=== PATIENT | female | born 1965 | race Caucasian/White ===

== ENCOUNTER 2020-05-13 00:34 | Outpatient (CLI) | payer OTHER, SELFPAY ==
[2020-05-13 19:58] LABS: SARS-CoV-2 RNA PCR Negative
== END 2020-05-13 00:35 | disposition home or self-care (01) ==
LOC: ANHCOVIDDT 00:34
PROVIDERS: Visit Provider Obstetrics & Gynecology
DX: Z01.812 Encounter for preprocedural laboratory examination (principal); Z20.828 Contact with and (suspected) exposure to other viral communicable diseases
CPT/HCPCS: 87635; C9803; U0003

== ENCOUNTER 2020-05-13 09:36 | Outpatient (CLI) | payer OTHER, SELFPAY ==
--- NOTE | 2020-05-13 09:40 | ECG_ITS ---
Measurements Intervals [place]son Rate: 56 P: 78 NV: 142 QRS: 75 QRSD: 94 T: 69 QT: 374 QTc: 362 Interpretive Statements SINUS BRADYCARDIA POSSIBLE RIGHT ATRIAL ENLARGEMENT LEFT ATRIAL ENLARGEMENT INCOMPLETE RIGHT BUNDLE BRANCH BLOCK DELAYED PRECORDIAL R/S TRANSITION BASELINE ARTIFACT- I, II, III, AVR, AVL, AVF, V1-V6 BORDERLINE ECG Electronically Signed On 05-13-2020 10:00:58 [employer] by Alberto Woods D.O.
== END 2020-05-13 09:37 | disposition home or self-care (01) ==
LOC: ANHSURGERY 09:40
PROVIDERS: PCP Family Medicine; Visit Provider Obstetrics & Gynecology
DX: I10 Essential (primary) hypertension (principal); Z01.818 Encounter for other preprocedural examination; I45.10 Unspecified right bundle-branch block
CPT/HCPCS: 93005

== ENCOUNTER 2020-05-15 03:21 | Day surgery (SDC) | payer OTHER, SELFPAY ==
--- NOTE | 2020-05-14 14:10 | P.PNAN_ITS ---
Anes - Initial Pre Proc Eval Procedure: Operation Date: 05/15/20 10:00 Proposed Procedures p Hysteroscopy Dilation and Curettage - Jarek Tan MD Date/Time: 05/14/20 14:10 Surgeon: Jarek Tan MD Pre Op Diagnosis: Post Menopausal Bleeding Patient Data Age: 54 Gender: F Height: Weight: 51.5 kg Allergies Allergy/AdvReac Type Severity Reaction Status Date / Time tramadol Allergy Intermediate NAUSEA Verified 05/15/20 08:42 Home Medications Medication Instructions Recorded Confirmed Type lisinopril 2.5 mg PO HS 05/02/20 05/15/20 History Patient hx anesthesia problems: none Family hx anesthesia problems: none [facility] Past Medical History Medical History (Updated 05/14/20 @ 14:11 by Austyn Fields MD) Asthma HTN (hypertension) Social History Social History Smoking status: Never smoker Living arrangements: with family Anes - Eval Final PreProcedure Day of Procedure 05/14/20 14:10 Patient weight: overweight Heart: regular rate and rhythm Lungs: clear to auscultation and normal air movement Airway: Mallampati scale class II Neurological: alert and oriented Last oral intake: >/= 8 hours ASA classification: II Emergent: no Anesthetic plan: proceed Anesthesia type and monitoring: general GIVS and LMA Informed Consent: The patient's anesthetic plan and its attendant risks and benefits were discussed with the patient/family/POA. Questions were solicited and answers provided to the satisfaction of the patient/family/POA.
[2020-05-15 08:20] VITALS: BP 138/82; PULSE 66; RESP 14; TEMP 36.6; O2SAT 100
[2020-05-15] MEDS: ACETAMINOPHEN 500 MG TABLET 1000 MG PO (08:41)
[2020-05-15] MEDS: LACTATED RINGERS 1,000 ML 30 ML IV CONT (08:52)
[2020-05-15 09:13] LABS: Hematocrit 40.8 % (37.0-47.0); Hemoglobin 13.7 g/dL (12.0-15.0)
--- NOTE | 2020-05-15 09:26 | WPDHPUPDATE1 ---
History and Physical Update Update Date/Time: 05/15/20 09:26 History and Physical has been reviewed, including an updated exam of the patient. There are NO changes in the patient's condition. Risks, benefits, and alternatives have been discussed and questions answered. Patient agrees to proceed with procedure.
--- NOTE | 2020-05-15 10:45 | SUR.OPER ---
EBL:20cc
--- NOTE | 2020-05-15 10:51 | PM.PROC ---
Procedure Note - Detailed Date of procedure: 05/15/20 Pre-op diagnosis: Post Menopausal Bleeding Abnormal uterine bleeding Post-op diagnosis: same Procedure performed: Hysteroscopy D&C Description of procedure: The patient was taken the operating room. She was prepped and draped in the dorsal lithotomy position after induction of mac anesthesia. A speculum was placed in the vagina. The cervix grasped with a tenaculum. The cervix was injected at 3 and 9:00 a.m. with 1% lidocaine. Cervix was dilated up to 1 cm. The hysteroscope was inserted the intrauterine cavity and the above findings were noted. A medium-size curette was then used to curettage all surfaces within the endometrial cavity. The endometrial curettings were collected on a Telfa. There were submitted to the pathology department. Hysteroscope was reinserted the intrauterine cavity to re-examine the endometrial surfaces. The hysteroscope was withdrawn. The tenaculum was removed. The speculum was removed. The patient tolerated the procedure well. She was taken recovery room stable condition. Sponge lap needle counts were correct x2. Anesthesia: MAC Surgeon: Jarek Tan MD Estimated blood loss (mL): 75 Drains: No Packing: No Pathology: yes Complications: No immediate complications Condition: stable Disposition: PACU Findings: There was some thickening of the endometrium. There was normal appearing vulva vagina and cervix.
[2020-05-15 10:54] VITALS: BP 97/64; PULSE 66; RESP 12; O2SAT 97
[2020-05-15 11:15] VITALS: BP 99/57; PULSE 60; RESP 16; O2SAT 100
[2020-05-15 11:45] VITALS: BP 123/74; PULSE 54; RESP 16; TEMP 36.6
== END 2020-05-15 12:10 | disposition home or self-care (01) ==
PROVIDERS: Anesthesiology; PCP Family Medicine; Visit Provider Obstetrics & Gynecology
PROC: 0U5B8ZZ Destruction of Endometrium, Via Natural or Artificial Opening Endoscopic (ICD-10-PCS; CPT 58563; principal; 2020-05-15 10:00)
DX: N95.0 Postmenopausal bleeding (principal); I10 Essential (primary) hypertension
CPT/HCPCS: 58558; 36415; 85014; 85018; 88305; A9270; J2250; J2704; J3010; J7030; J7120

== ENCOUNTER 2020-10-08 12:09 | Outpatient (CLI) | payer OTHER, SELFPAY | END 2020-10-08 12:10 | disposition home or self-care (01) | PROVIDERS: PCP Family Medicine; Visit Provider Obstetrics & Gynecology | DX: N83.299 Other ovarian cyst, unspecified side (principal); Z01.818 Encounter for other preprocedural examination | CPT/HCPCS: 36415; 86850; 86900; 86901 ==

== ENCOUNTER → 2020-10-12 05:22 | Outpatient (CLI) | payer OTHER, SELFPAY ==
[2020-10-12 19:34] LABS: SARS-CoV-2 RNA PCR Negative
== END ==
PROVIDERS: PCP Family Medicine; Visit Provider Obstetrics & Gynecology
DX: Z01.812 Encounter for preprocedural laboratory examination (principal); Z20.822 Contact with and (suspected) exposure to COVID-19
CPT/HCPCS: C9803; U0003; U0005

== ENCOUNTER 2020-10-15 12:12 | Outpatient (CLI) | payer OTHER, SELFPAY ==
--- NOTE | ~2020-10-15 | US_ITS ---
EXAMINATION: US venous doppler [facility] EXAM DATE: 10/15/2020 12:54 INDICATION: Left knee pain. TECHNIQUE: Multiple grayscale, color flow and Doppler images of the left lower extremity deep venous system were obtained and reviewed. There is no prior study for comparison. FINDINGS: The left common femoral, femoral and profunda veins demonstrate normal color flow, respirat ory variation, augmentation and compressibility. Compressibility, color flow confirmed within the le ft popliteal, posterior tibial, peroneal, and greater saphenous veins. Small Moore's cyst measuring 2 mm in diameter by 5 mm in thickness. IMPRESSION: 1. No left lower extremity deep venous thrombosis. 2. Small Moore's cyst. Reviewed, dictated and finalized at location A.
== END 2020-10-15 12:13 | disposition home or self-care (01) ==
LOC: ANHIMG 12:14
PROVIDERS: PCP Family Medicine; Visit Provider Obstetrics & Gynecology
DX: M79.662 Pain in left lower leg (principal); M71.22 Synovial cyst of popliteal space [Baker], left knee
CPT/HCPCS: 93971

== ENCOUNTER 2020-10-16 01:28 | Day surgery (SDC) | payer OTHER, SELFPAY ==
[2020-10-01 12:19] VITALS: BMI 22.6
[2020-10-16] VITALS (9 sets, daily range): BP systolic 105–131; BP diastolic 61–75; PULSE 44–80; RESP 10–18; TEMP 36.1–37.2; O2SAT 97–100; BMI 19.6
[2020-10-16] MEDS: KETOROLAC 15 MG/ML VIAL (*BKC) IV PUSH (07:18)
[2020-10-16] MEDS: ACETAMINOPHEN 500 MG TABLET 1000 MG PO (07:18)
--- NOTE | 2020-10-16 08:12 | WPDANESEPPF ---
Anes - Initial Pre Proc Eval Procedure: Operation Date: 10/16/20 08:15 Proposed Procedures p Total Laparoscopic Hysterectomy With Bilateral Salpingo-Oophorectomy - Jarek Tan MD Date/Time: 10/16/20 08:12 Surgeon: Jarek Tan MD Pre Op Diagnosis: Complex Ovarian Cyst Patient Data Age: 55 Gender: F Height: 5 ft 4 in Weight: 51.9 kg Allergies Allergy/AdvReac Type Severity Reaction Status Date / Time tramadol Allergy Intermediate NAUSEA Verified 10/16/20 06:35 Home Medications Medication Instructions Recorded Confirmed Type lisinopril 2.5 mg PO HS 05/02/20 10/16/20 History Patient hx anesthesia problems: none Family hx anesthesia problems: none [facility]PLAC[facility] Past Medical History Medical History Asthma HTN (hypertension) Social History Social History Smoking status: Never smoker Alcohol intake: never Substance use: never Living arrangements: with family Gender identity (if verbalized by the patient): Female Spiritual care concerns: No Anes - Eval Final PreProcedure Day of Procedure 10/16/20 08:12 Patient weight: normal Heart: regular rate and rhythm Lungs: clear to auscultation Airway: Mallampati scale class 1 Neurological: alert and oriented Last oral intake: >/= 8 hours ASA classification: II Emergent: no Anesthetic plan: proceed Anesthesia type and monitoring: general ETT and standard monitoring Informed Consent: The patient's anesthetic plan and its attendant risks and benefits were discussed with the patient/family/POA. Questions were solicited and answers provided to the satisfaction of the patient/family/POA.
--- NOTE | 2020-10-16 08:23 | WPDHPUPDATE1 ---
History and Physical Update Update Date/Time: 10/16/20 08:23 History and Physical has been reviewed, including an updated exam of the patient. There are NO changes in the patient's condition. Risks, benefits, and alternatives have been discussed and questions answered. Patient agrees to proceed with procedure.
[2020-10-16] MEDS: LACTATED RINGERS 1,000 ML 30 ML IV CONT ×2 (08:26→10:17)
[2020-10-16] MEDS: ceFAZolin 2 GM/D5W 50 ML 2 GM/50 ML BAG IVPB (08:38)
--- NOTE | 2020-10-16 10:21 | P.OP_ITS ---
Procedure Note - Detailed Date of procedure: 10/16/20 Pre-op diagnosis: Complex Ovarian Cyst Enlarged fibroid uterus Post-op diagnosis: same Procedure performed: Total laparoscopic hysterectomy bilateral salpingo- oophorectomy Description of procedure: The patient was taken to the operating room. She was prepped and draped in the dorsal lithotomy position. A speculum was placed in the vagina. The cervix was grasped with a tenaculum. Stay sutures were placed at 3 and 9:00 a.m. of 0 Vicryl. The stay sutures were brought through the Sunday up. The TESS manipulator was placed in the vagina with a fixed Sunday cup. The cup was then pushed up around the cervix. The sutures were tied to the handle of the TESS manipulator. A 5 mm incision was made on the abdominal skin of the left upper quadrant using a scalpel. A 5 mm trocar was inserted into the intra-abdominal cavity under direct visualization the scope. Pneumoperitoneum was achieved. An 11 mm incision was made in the left lower quadrant of the abdomen with a scalpel. A 11 mm trocar was inserted into the intra-abdominal cavity under direct visualization the scope. A 5 mm periumbilical incision was made. A 5 mm scope was placed into the intra-abdominal cavity under direct visualization of the scope. The ureters were identified. The ureters were observed to be away from the infundibulopelvic ligaments. These infundibulopelvic ligaments were i solated, cauterized, and transected with LigaSure cautery. This was done in a bilateral fashion. The para ovarian tissue along the pelvic sidewall was cauterized and transected in a bilateral fashion using the ligature cautery. The round ligaments were cauterized and transected bilaterally with LigaSure cautery. The broad ligaments were cauterized and transected along the lateral aspects of the uterus down the level of the uterine arteries. A bladder flap was created using sharp and blunt dissection. The ureters were dissected out bilaterally down to the level of the uterine arteries. The could be visualized from the pelvic brim down the uterine arteries. Staying very close to the cervix the parametrium was cauterized transected in a stepwise fashion down to the level of the Sunday cup. The Bladder flap was moved distally over the Sunday cup using sharp and blunt dissection. The cup was visualized and a complete 360 degree papillary around the cervix. An incision was made with unipolar cautery down under the Sunday cup creating a colpotomy incision all the way around the cervix. The uterus tubes and ovaries were taken out through the vagina. A pneumo occluder was placed in the vagina. The vagina was closed with 0 V lock suture in a running fashion. The ureters were identified again and found to be intact elevated and the uterine arteries. The pelvis was irrigated with a copious amount of antibiotic irrigation. The pneumoperitoneum was reduced. The trocars were removed. The skin was closed subcuticular 4 Monocryl covered with Dermabond. The pneumo occluder was removed from the vagina. The vagina was irrigated with Betadine. The patient tolerated the procedure well. She was taken to the recovery room in stable condition. Sponge lap and needle counts were correct x2. Anesthesia: GETA Surgeon: Jarek Tan MD Estimated blood loss (mL): 200 Drains: No Packing: No Pathology: yes Complications: No immediate complications Condition: stable Disposition: PACU Findings: Grossly normal-appearing uterus tubes and ovaries. With benign cystic left ovary
[2020-10-16] MEDS: fentaNYL CITRATE INJ (*CRX) 100 MCG/2 ML VIAL 25 MCG IV PUSH ×3 (10:47→10:54)
[2020-10-16] MEDS: LACTATED RINGERS 1,000 ML 125 ML (12:10)
[2020-10-16] MEDS: ONDANSETRON INJ 4 MG/2 ML VIAL IV PUSH ×2 (12:10→20:48)
[2020-10-16] MEDS: KETOROLAC 30 MG/ML VIAL (*BKC) IV PUSH ×2 (12:53→20:47)
--- NOTE | 2020-10-16 13:42 | PC.NURSE ---
[id number] Pt admitted to room 284 per bed from Recovery room after surgery today with Dr. Tan. Pt sleepy, but responds appropriately. Oriented to room, staffing and procedures; made comfortable and appears to be able to rest; Pt's VSS and assessment WNL. Pt's is at home with their children; pt has a friend coming later today to stay with her. Pt has admission folder at bedside.
[2020-10-16] MEDS: HYDROcodone/acetaminophen (*CRX) 5-325 MG TABLET 1 TAB PO (16:01)
[2020-10-16] MEDS: LACTATED RINGERS 1,000 ML 500 ML IV CONT (20:50)
[2020-10-16] MEDS: lisinopriL 2.5 MG TABLET PO (21:02)
[2020-10-17] MEDS: LACTATED RINGERS 1,000 ML 150 ML IV CONT (01:15)
[2020-10-17] MEDS: KETOROLAC 30 MG/ML VIAL (*BKC) IV PUSH (03:02)
[2020-10-17 03:10] VITALS: BP 107/66; PULSE 61; RESP 12; TEMP 37.1; O2SAT 97
--- NOTE | 2020-10-17 07:44 | WPDANESPN ---
Anes - Prog Note Post-Op Date/Time: 10/17/20 07:44 Cardiovascular status: normal Respiratory status: normal Airway patency: baseline Mental status: baseline Post-Op hydration status: normal Vital Signs: Last Vital Signs Temp 37.1 C 10/17/20 03:10 Pulse 61 10/17/20 03:10 Resp 12 10/17/20 03:10 BP 107/66 10/17/20 03:10 Pulse Ox 97 10/17/20 03:10 Pain Score (VAS): 3 I/O: Intake & Output 10/16/20 10/16/20 10/17/20 15:59 23:59 07:59 Intake Total 250 1460 300 Output Total 330 425 700 Balance -80 1035 -400 Post-procedural complaints: none Patient Feedback: Patient satisfied with anesthetic care.
[2020-10-17 08:00] VITALS: BP 110/67; PULSE 78; RESP 18; TEMP 36.9
[2020-10-17] MEDS: HYDROcodone/acetaminophen (*CRX) 5-325 MG TABLET 1 TAB PO (08:19)
--- NOTE | 2020-10-17 08:32 | PM.GYNPNOP ---
ASSISTANT PASTRY CHEF - A/P Postoperative Procedures: Procedures Operation Date: 10/16/20 08:15 Actual Procedures Side Surgeon p Total Laparoscopic Hysterectomy With Bilateral Salpingo-Oophorectomy Bilateral Jarek Tan MD Postoperative day: 1 Postoperative status: doing well and other (Tollerating Regular Diet) Postoperative plan: routine post-op care and discharge Time Spent With Patient Time: Total time spent is greater than 50% in coordination of care (as documented) at patient's floor/unit and/or counseling patient: Time with patient: 15 - 25 minutes ASSISTANT PASTRY CHEF- PN:Subj Post-Op Subjective Date/time seen: 10/17/20 08:32 Subjective: patient reports feeling better, pain is well controlled and patient is tolerating oral intake Exam Const: General: cooperative, healthy appearing, comfortable and no acute distress Resp: Auscultation: no crackles, no rales, no rhonchi and no wheezes Cardio: Rhythm: regular rhythm Heart sounds: no click and no murmurs GI: Inspection: non-distended Auscultation: normal bowel sounds Other: Incisions - CDI Extrem: General: normal to inspection, no pedal edema and no calf tenderness ASSISTANT PASTRY CHEF - PN: Obj Data Vital Signs Vital Signs: Vital Signs - 24 hr 10/16/20 10:17 10/16/20 10:30 10/16/20 10:45 Temperature 97.0 F L Pulse Rate 66 50 L 44 L Respiratory Rate 14 10 L 10 L Blood Pressure 125/69 125/70 118/70 Pulse Oximetry 100 100 100 10/16/20 11:00 10/16/20 11:15 10/16/20 11:35 Temperature 98.1 F Pulse Rate 56 L 50 L 54 L Respiratory Rate 14 10 L 16 Blood Pressure 108/61 105/64 114/69 Pulse Oximetry 98 99 100 10/16/20 15:14 10/16/20 20:00 10/16/20 23:50 Temperature 98.9 F 98.4 F 97.9 F Pulse Rate 70 80 71 Respiratory Rate 18 16 15 Blood Pressure 125/67 131/75 111/74 Pulse Oximetry 98 97 97 10/17/20 03:10 Temperature 98.8 F Pulse Rate 61 Respiratory Rate 12 Blood Pressure 107/66 Pulse Oximetry 97 Intake/Output Intake/Output: Intake & Output 10/14/20 10/15/20 10/16/20 10/17/20 23:59 23:59 23:59 23:59 Intake Total 1710 300 Output Total 751 700 Balance 955 -400 Meds/Results Medications: Active Medications Generic Name Dose Route Start Last Admin Trade Name Freq PRN Reason Stop Dose Admin Hydrocodone Bitart/Acetaminophen 1 tab 10/16/20 11:24 10/17/20 08:19 Hydrocodone/Acetaminophen (*Crx) 5-325 Mg Tablet PO 1 tab Q3H PRN Administration Pain Rated 5 or Less Hydrocodone Bitart/Acetaminophen 1 tab 10/16/20 11:24 Hydrocodone/Acetaminophen (*Crx) 10-325 Mg Tablet PO Q3H PRN Pain Rated 6 or Greater Lactated Ringer's 1,000 mls @ 150 mls/hr 10/16/20 21:10 10/17/20 01:15 Lr - Lactated Ringers Iv IV CONT 150 mls/hr .[id number] MASSIEL Administration Ibuprofen 600 mg 10/16/20 11:24 Ibuprofen 600 Mg Tablet PO Q6H PRN Cramping Ketorolac Tromethamine 30 mg 10/16/20 11:24 10/17/20 03:02 Ketorolac 30 Mg/Ml Vial (*Bkc) IV PUSH 10/21/20 11:25 30 mg Q6H PRN Administration Pain Rated 4-6 Lisinopril 2.5 mg 10/16/20 21:00 10/16/20 21:02 Lisinopril 2.5 Mg Tablet PO 2.5 mg HS MASSIEL Administration Naloxone HCl 0.1 mg 10/16/20 11:24 Naloxone Hcl 0.4 Mg/Ml Vial IV PUSH Q2M PRN Respiratory rate less than 10 Ondansetron HCl 4 mg 10/16/20 11:24 10/16/20 20:48 Ondansetron Inj 4 Mg/2 Ml Vial IV PUSH 4 mg Q6H PRN Administration Nausea And Vomiting Promethazine HCl 12.5 mg 10/16/20 21:09 Promethazine Hcl 25 Mg/Ml Ampul IV PUSH Q6H PRN Nausea And Vomiting
[2020-10-17] MEDS: IBUPROFEN 600 MG TABLET PO (11:45)
--- NOTE | 2020-10-17 12:06 | PC.NURSE ---
Pt. ambulated to bathroom with slow steady gait. Unable to urinate at this time. Assisted to chair and encouraged to walk hallway.
--- NOTE | 2020-10-17 15:28 | PC.NURSE ---
Self care discharge instructions given to pt. Pt. verbalized understanding. Sister at side. Pt. instructed to see Dr. Tan in 1 week and not lift any thing heavier that 20 lbs. Rest as much as possible.
== END 2020-10-17 15:35 | disposition home or self-care (01) ==
LOC: ANHSURGERY 06:21 → ANHOB2 11:25
PROVIDERS: PCP Family Medicine; Visit Provider Obstetrics & Gynecology
PROC: 0UT9FZZ Resection of Uterus, Via Natural or Artificial Opening With Percutaneous Endoscopic Assistance (ICD-10-PCS; CPT 58573; principal; 2020-10-16 08:15)
DX: N83.12 Corpus luteum cyst of left ovary (principal); N83.291 Other ovarian cyst, right side; D25.1 Intramural leiomyoma of uterus; N80.0 Endometriosis of uterus; K66.0 Peritoneal adhesions (postprocedural) (postinfection); I10 Essential (primary) hypertension; J45.909 Unspecified asthma, uncomplicated
CPT/HCPCS: 58573; 88307; 99199; A9270; J0330; J0690; J1170; J1885; J2250; J2405; J2704; J2710; J3010; J7120